=== PATIENT | female | born 1975 | race Caucasian/White ===

== ENCOUNTER 2016-05-21 12:52 | Emergency (ER) | payer OTHER ==
[~2016-05-21] VITALS: Ht 172.7 cm; Wt 48.5 kg
[2016-05-21 15:27] VITALS: BP 109/90
== END 2016-05-21 15:27 | disposition home or self-care (01) ==
LOC: ED 12:52
DX: R07.89 Other chest pain (principal)

== ENCOUNTER 2016-10-19 15:40 | Emergency (ER) | payer OTHER ==
[~2016-10-19] VITALS: Ht 172.7 cm; Wt 54.4 kg
[2016-10-19 19:18] VITALS: BP 112/80
== END 2016-10-19 19:18 | disposition home or self-care (01) ==
LOC: ED 15:40
DX: S81.011A Laceration without foreign body, right knee, initial encounter (principal); F17.210 Nicotine dependence, cigarettes, uncomplicated; W22.8XXA Striking against or struck by other objects, initial encounter; Y93.89 Activity, other specified; Y92.89 Other specified places as the place of occurrence of the external cause; Y99.8 Other external cause status
CPT/HCPCS: 90715

== ENCOUNTER 2017-04-13 07:20 | Emergency (ER) | payer OTHER ==
[~2017-04-13] VITALS: Ht 172.7 cm; Wt 53.1 kg
[2017-04-13 07:28] VITALS: Ht 172.7 cm; Wt 53.1 kg
[2017-04-13 11:00] VITALS: BP 124/72
== END 2017-04-13 11:00 | disposition home or self-care (01) ==
LOC: ED 07:20
DX: S20.212A Contusion of left front wall of thorax, initial encounter (principal); X58.XXXA Exposure to other specified factors, initial encounter; Y93.89 Activity, other specified; Y92.89 Other specified places as the place of occurrence of the external cause; Y99.8 Other external cause status
CPT/HCPCS: J1885

== ENCOUNTER 2017-04-30 11:32 | Emergency (ER) | payer MEDICAID ==
[~2017-04-30] VITALS: Ht 172.7 cm; Wt 54.4 kg
[2017-04-30 11:38] VITALS: Ht 172.7 cm; Wt 54.4 kg
[2017-04-30 13:57] VITALS: BP 120/86
[2017-04-30 14:07] LABS: AMPHETAMINE QUAL UR POSITIVE (NEG <=1000)
== END 2017-04-30 13:57 | disposition home or self-care (01) ==
LOC: ED 11:32
PROVIDERS: Emergency Medicine
DX: S22.42XD Multiple fractures of ribs, left side, subsequent encounter for fracture with routine healing (principal); F12.10 Cannabis abuse, uncomplicated; F15.10 Other stimulant abuse, uncomplicated; F17.200 Nicotine dependence, unspecified, uncomplicated; J44.9 Chronic obstructive pulmonary disease, unspecified; X58.XXXD Exposure to other specified factors, subsequent encounter
CPT/HCPCS: 99406; J1885